=== PATIENT | male | born 1940 | race African-American/Black ===

== ENCOUNTER 2018-10-16 12:27 | Emergency (ER) | payer MEDICARE, OTHER | END 2018-10-16 13:39 | disposition left against medical advice (07) | LOC: ERS 12:27 | DX: Z53.21 Procedure and treatment not carried out due to patient leaving prior to being seen by health care provider (principal) ==

== ENCOUNTER 2019-03-01 14:27 | Inpatient (IN) | payer MEDICARE, OTHER ==
--- NOTE | 2019-03-01 16:51 | RAD ---
EXAM: Single view of the chest HISTORY: Fall today with syncope COMPARISON: 06/26/2015 FINDINGS: Single view of the chest shows a normal sized cardiomediastinal silhouette. There is no shelly dence of consolidation, mass, or pleural effusion. The bones are unremarkable. Shrapnel is seen along the right chest wall. IMPRESSION: No evidence of acute cardiopulmonary disease
[2019-03-01] MEDS ORDERED: Diltiazem 125 MG/25 ML ONE (17:00)
[2019-03-01 17:08] LABS: #Lymphocytes 0.9 thou/uL (1.20-3.40); #Monocytes 0.5 thou/uL (0.11-0.59); #Neutrophils 3.7 thou/uL (1.40-6.50); %Basophils 0.6 % (0.0-1.0); %Eosinophils 0.5 % (0.0-10.0); %Monocytes 9.9 % (0.0-10.0); Hemoglobin 14.6 g/dL (14.0-18.0); Mean Corpuscular HGB CONC 31.5 g/dL (32.0-36.0); Mean Corpuscular Hemoglobin 30.1 pg (27.0-31.0); Mean Corpuscular Volume 95.5 fL (78.0-98.0); Mean Platelet Volume 9.1 fL (7.4-10.4); Platelet Count 263 thou/uL (130-400); RBC Distribution Width 13.3 % (11.5-14.5); Red Blood Cell (RBC) Count 4.85 mill/uL (4.70-6.10); White Blood Cell (WBC) Count 5.1 thou/uL (4.8-10.8)
--- NOTE | 2019-03-01 17:24 | CT ---
EXAM: Brain CT scan Without contrast: HISTORY: Multiple falls, trauma COMPARISON: None FINDINGS: Atrophy and chronic white matter ischemic change. No focal mass or midline shift. No intra or extra-axial hemorrhage. IMPRESSION: No mass or bleed or other significant acute process.
[2019-03-01 17:28] LABS: ALT (SGPT) 19 U/L (8-55); AST (SGOT) 28 U/L (5-34); Albumin 4.6 g/dL (3.4-4.8); Alkaline Phosphatase 60 U/L (40-150); Anion Gap 17 mmol/L (10-20); BUN (Urea Nitrogen) 20 mg/dL (8.4-25.7); Calc. Creatinine Clearance 0 mL/min (70-130); Calcium 10.5 mg/dL (7.8-10.44); Carbon Dioxide 26 mmol/L (23-31); Chloride 100 mmol/L (98-107); Estimated GFR-MDRD 73; Glucose 88 mg/dL (83-110); Potassium 4.5 mmol/L (3.5-5.1); Protein, Total 7.6 g/dL (5.8-8.1); Sodium 138 mmol/L (136-145)
[2019-03-01 17:50] LABS: CKMB 2.6 ng/mL (0-6.6)
[2019-03-01] MEDS ORDERED: Aspirin Chewable 81 MG TAB ONE (19:00)
[2019-03-01 19:48] LABS: Bilirubin Negative (Negative); Blood, Urine Negative (Negative); Clarity CLEAR (Clear); Glucose, Urine (Dipstick) Negative (Negative); Leukocyte Large (Negative); Nitrite Negative (Negative); Protein, Urine (Dipstick) Negative (Neg-Trace); Specific Gravity, Urine 1.016 (1.002-1.036); Urobilinogen 0.2 mg/dL (0.2-1.0); pH, Urine 5.5 (5.0-9.0)
[2019-03-01 19:54] LABS: Bacteria/HPF None Seen HPF (None Seen); Hyaline Casts/LPF 0-3 HYALINE CAST LPF (0-3 Hyaline); Pathc Cast-AUWi Flag 0.54 (0-2.49); RBC/HPF 0-3 HPF (0-3); Squamous Epithelial 0-3 HPF (0-3); WBC/HPF 21-50 HPF (0-3)
[2019-03-01 22:14] VITALS: BMI 18.6
[2019-03-01] MEDS ORDERED: Senokot S 8.6-50 MG TAB PO PRN (22:15)
[2019-03-01] MEDS ORDERED: Acetaminophen 325 MG TAB PO PRN (22:15)
[2019-03-01] MEDS ORDERED: Ondansetron PF 4 MG/2 ML Vial IVP PRN (22:15)
[2019-03-01] MEDS ORDERED: Ondansetron ODT 4 MG TAB PO PRN (22:15)
[2019-03-01] MEDS ORDERED: Acetaminophen 650 MG Suppository PR PRN (22:15)
[2019-03-01] MEDS ORDERED: Enoxaparin Sodium 60 MG/0.6 ML SYRINGE SC SCH (22:15)
[2019-03-01] MEDS ORDERED: Diazepam 5 MG TAB PO PRN (22:28)
[2019-03-01] MEDS ORDERED: Docusate 100 MG CAP PO SCH (22:30)
[2019-03-01] MEDS ORDERED: Thiamine HCl 200 MG/2 ML VIAL IM SCH (22:30)
[2019-03-01] MEDS ORDERED: Diazepam 5 MG TAB PO SCH (22:30)
[2019-03-02 00:10] LABS: CKMB 2.6 ng/mL (0-6.6)
[2019-03-02] MEDS ORDERED: Diazepam 5 MG TAB PO PRN (04:00)
[2019-03-02] MEDS ORDERED: Sodium Chloride 0.9% 500 ML IV SCH (05:30)
[2019-03-02] MEDS ORDERED: Sodium Chloride 0.9% 250 ML IV SCH (06:15)
[2019-03-02] MEDS ORDERED: Amiodarone 150 MG in Dextrose 5% in Water 100 ML IVPB SCH (06:15)
[2019-03-02] MEDS ORDERED: Amiodarone 150 MG, Admixture Fee 1 EACH in Dextrose 5% in Water 100 ML IVPB SCH (06:30)
--- NOTE | 2019-03-02 07:52 | HP ---
PRIMARY CARE PHYSICIAN: Dr. Dumont at [facility] [place]. CHIEF COMPLAINT: Repetitive syncopal episodes. HISTORY OF PRESENT ILLNESS: This is a 78-year-old male with a history of hypertension as well as alcoholism and tobacco abuse. He reports that starting yesterday, he had a sudden syncopal episode where he found himself on the floor. Does not know how long he was down. He was able to get around okay after that and then today, he had about 3 more of them. He had no pain afterward. He just kept waking up on the floor. No loss of bowel or bladder continence. No visible injuries and no pain with ambulation afterward any of the times, but he was worried about these and so he came into the emergency room. In the ER, he was found to be in atrial flutter with variable rate, initially in the 120s to 130s, had a dose of 10 mg of Cardizem in the emergency room and it brought it down initially into the 80s to 100s. However, he did start having some episodes of bradycardia down to the 40s that was quickly resolved. The patient is now running about in the 110's. He is asymptomatic, lying in the stretcher. Denies any other complaints. He has not had any alcohol for the past 24 hours. He states he has never had withdrawal symptoms. PAST MEDICAL HISTORY: 1. Hypertension. 2. Gastroesophageal reflux disease. 3. Herpes zoster. 4. Cholelithiasis. 5. Previous squamous cell carcinoma of the neck, status post resection, chemotherapy, and radiation. PAST SURGICAL HISTORY: 1. Radical neck dissection for squamous cell carcinoma. 2. Inguinal hernia repair. 3. Screening colonoscopy with likely polyp removal. 4. EGD in 2014 for hemorrhagic gastritis. SOCIAL HISTORY: The patient lives by himself, has multiple family members who live in town. He smokes a pack of cigarettes a day and has since he was 16 years old. He does drink about 5 mixed drinks a day. No illicit drug use. FAMILY HISTORY: No known specific family medical problems. ALLERGIES: NO KNOWN DRUG ALLERGIES. CURRENT MEDICATIONS: The patient does not know his current medications. He believes he is on high blood pressure medicine, but does not know what it is or what his other medicines are. REVIEW OF SYSTEMS: CONSTITUTIONAL: No fevers. No chills. EYES: No double vision or blurred vision. ENT: No congestion, drainage, or sore throat. CARDIOVASCULAR: No chest pain. No palpitations or racing heart. PULMONARY: He has occasional chronic cough but nothing worse than normal, nonproductive. No wheezing, chest tightness, or trouble breathing. GASTROINTESTINAL: No abdominal pain. No nausea or vomiting. No diarrhea. He has had some constipation and takes a daily laxative. GENITOURINARY: No dysuria or hematuria. MUSCULOSKELETAL: No muscle aches or joint pains. SKIN: No rashes or other lesions noted. NEUROLOGIC: No numbness, tingling, or focal weakness. Just the syncopal episodes as per HPI. PHYSICAL EXAMINATION: VITAL SIGNS: Blood pressure 138/89, pulse 84, respirations 18, temperature 97.8, and O2 saturation 94% on room air. GENERAL: This is a well-developed, thin, elderly male, in no acute distress. HEENT: Pupils are equal, round, and reactive to light. Oropharynx clear without lesions, erythema, or exudate. NECK: Supple. No lymphadenopathy. No thyroid nodules or enlargement. HEART: Irregularly irregular rhythm. Tachycardic in about the 110's. No murmurs, rubs, or gallops. ABDOMEN: Soft, nontender to palpation. Normoactive bowel sounds. No hepatosplenomegaly or other masses. EXTREMITIES: No clubbing, cyanosis, or edema. SKIN: No rashes or lesions noted. NEUROLOGIC: He is moving all extremities and equal strength and no facial droop. PSYCHIATRIC: Alert and oriented x3. Normal mood and affect. LABORATORY DATA AND DIAGNOSTIC STUDIES: CBC within normal limits. Complete metabolic panel within normal limits. Troponin is indeterminate at 0.038. Brain-natriuretic peptide is elevated at 430. Chest x-ray; I did review the chest x-ray done in the emergency room along with the radiologist's report, it shows no acute infiltrates or cardiomegaly or CHF changes. CT of the brain showing no acute intracranial process. EKG done in the emergency room shows atrial flutter with ventricular rate of 110 beats per minute along with some left ventricular hypertrophy changes. ASSESSMENT: 1. Syncopal episodes, likely secondary to his atrial arrhythmia. We will keep him in a bed or chair for now and only ambulate with assistance. 2. Atrial flutter with rapid ventricular response. The patient had some bradycardic spells with 10 mg of Cardizem in the emergency room. Given that response, I discussed this patient with Dr. Avalos, and he recommended just watching him in the IMCU without further AV dawit blockers and that the patient will likely need an ablation in the morning. He asked that we did make him n.p.o. after midnight and give him one dose of Lovenox. 3. Hypertension. We will try and find out the patient's home blood pressure medications and resume any that do not cause bradycardia. 4. History of gastroesophageal reflux disease. We will put the patient on Pepcid twice a day. 5. Deep venous thrombosis prophylaxis. The patient is going to be on Lovenox. 6. Code status; I did discuss this with the patient, he is a full code. Should he be incapacitated, he states that his son would be his medical decision maker. Son is present in the room. His name is Ace Ordoñez. 7. Alcohol abuse. The patient denies any history of alcohol withdrawal symptoms with stopping alcohol. However, we will put him on ASE protocol just in case. 8. Tobacco abuse. I did recommend the patient consider stopping smoking and we will give him smoking cessation resources in the hospital. Job ID: [id number]
[2019-03-02] MEDS ORDERED: Prevnar 13-Val Conj/PF 0.5 ML SYRINGE IM ONE (09:00)
[2019-03-02] MEDS: Magnesium Oxide 400 MG TAB PO SCH (09:18)
[2019-03-02] MEDS: Folic Acid 1 MG TAB PO SCH (09:18)
[2019-03-02] MEDS: Famotidine 20 MG TAB PO SCH ×2 (09:18→19:48)
[2019-03-02] MEDS: Multivitamin W/ Minerals 1 TAB PO SCH (09:19)
[2019-03-02] MEDS: Famotidine/PF 20 mg/2ml Vial SLOW IVP SCH ×2 (09:19→19:48)
[2019-03-02] MEDS: Thiamine 100 MG TAB PO SCH (09:19)
[2019-03-02] MEDS: Docusate 100 MG CAP PO SCH ×2 (09:19→19:48)
--- NOTE | 2019-03-02 10:29 | PDOC.PN ---
- Subjective Encounter Start Date: 03/02/19 Encounter Start Time: 12:10 Subjective: Patient had some low BP with high heart rate this AM, resolved with -: 5mg cardizem and Amiodarone bolus. Plan for ablation later today. -: No Chest pain. No SOB. No more syncope. - Objective Resuscitation Status - Order Detail: 03/01/19 19:31 Resuscitation Status Routine Resuscitation Status: FULL: Full Resuscitation Discussed with: Patient MAR Reviewed: Yes Vital Signs & Weight: Vital Signs (12 hours) Temp Pulse Ox 03/02/19 03:00 98.4 F 03/01/19 23:42 98 03/01/19 23:00 98.4 F Weight Weight 126 lb 1.671 oz Most Recent Monitor Data Heart Rate from ECG 77 NIBP 110/64 NIBP BP-Mean 79 Respiration from ECG 11 SpO2 97 I&O: 03/01/19 03/02/19 03/03/19 06:59 06:59 06:59 Intake Total 165 Output Total 0 Balance 165 Result Diagrams: 03/01/19 16:53 03/01/19 16:53 EKG Reviewed by me: Yes (sinus serina with PACs on tele monitor) Phys Exam - Physical Examination Constitutional: NAD HEENT: moist MMs Respiratory: no wheezing, no rales, no rhonchi Cardiovascular: RRR, no significant murmur mild bradycardia Gastrointestinal: soft Neurological: non-focal Psychiatric: normal affect, A&O x 3 Dx/Plan (1) Syncopal episodes Code(s): R55 - SYNCOPE AND COLLAPSE Status: Acute (2) Atrial flutter with rapid ventricular response Code(s): I48.92 - UNSPECIFIED ATRIAL FLUTTER Status: Acute (3) HTN (hypertension) Code(s): I10 - ESSENTIAL (PRIMARY) HYPERTENSION Status: Acute (4) GERD (gastroesophageal reflux disease) Code(s): K21.9 - GASTRO-ESOPHAGEAL REFLUX DISEASE WITHOUT ESOPHAGITIS Status: Acute (5) Alcohol abuse Code(s): F10.10 - ALCOHOL ABUSE, UNCOMPLICATED Status: Acute (6) Tobacco abuse Code(s): Z72.0 - TOBACCO USE Status: Acute (7) Hypotension Status: Acute Comment: This AM with rapid heart rate, resolved with rate control - Plan cont current plan of care, PT/OT, DVT proph w/lovenox plan for ablation later today if can fit in schedule * . - Discharge Day Encounter end time: 12:20
--- NOTE | 2019-03-02 12:28 | CON ---
DATE OF CONSULTATION: 03/02/2019 SERVICE: Pulmonary Medicine. HISTORY OF PRESENT ILLNESS: The patient is a 78-year-old male with past medical history significant for head and neck cancer, status post radiation and chemotherapy. He was in his usual state of health until one day prior to admission when he started having multiple syncopal episodes. He did not remember falling. He just would wake up on the floor. This happened at least on 4 or 5 occasions. He did not have any fevers, chills, cough, nausea, vomiting, or diarrhea. He is known to drink fairly heavily. He presented to the emergency department with these complaints and was discovered to be in atrial flutter with RVR. He was given some Cardizem and reverted back into a sinus rhythm. On multiple occasions, he went back into the tachyarrhythmia. However, he had no additional episodes of syncope that went along with these things. He has been on some IV fluids overnight and otherwise is feeling a little bit improved. PAST MEDICAL HISTORY: 1. Chronic obstructive pulmonary disease (not currently diagnosed). 2. Hypertension. 3. Gastroesophageal reflux disease. 4. Oropharyngeal dysphagia. 5. History of squamous cell carcinoma of the neck status post resection, chemotherapy, and radiation. 6. History of herpes zoster. 7. Cholelithiasis. 8. Atrial flutter with RVR, paroxysmal. PAST SURGICAL HISTORY: 1. Radical neck dissection for squamous cell carcinoma. 2. Inguinal hernia repair. 3. EGD in 2014 for hemorrhagic gastritis. SOCIAL HISTORY: Negative for tobacco or illicit drug use. He drinks at least 8 -10 shots of bourbon on a daily basis, which he mixes with Coke. He smokes a pack of cigarettes on a daily basis and has greater than a 60-pack year history of smoking. Denies any street drugs. He has no exposure to chemicals, dust, asbestos, or tuberculosis. Currently, he is living by himself and is functional in his ADLs. FAMILY HISTORY: Noncontributory. ALLERGIES: NO KNOWN DRUG ALLERGIES. MEDICATIONS: List of his inpatient medications were reviewed. No specific updates were made at this time. REVIEW OF SYSTEMS: General, head ears, eyes, nose, throat, cardiovascular, respiratory, GI, , musculoskeletal, neurologic, and skin are negative except as mentioned in the HPI. PHYSICAL EXAMINATION: VITAL SIGNS: Afebrile. Blood pressure 110/64, heart rate 77, respirations 11, saturation 99% on room air. GENERAL: We did orthostatic vital signs and he did have a positive tilt. HEENT: Normocephalic and atraumatic. Sclerae white. Conjunctivae pink. Oral mucosa is moist without lesions. Postradiation changes are noted. HEART: Normal rate. Regular at this time. ABDOMEN: Soft, nontender, and nondistended. Bowel sounds are positive. LUNGS: Reduced air entry with a slightly prolonged expiratory phase. I do not appreciate wheezing, rhonchi, or crackles present. MUSCULOSKELETAL: No cyanosis or clubbing. No pitting in the bilateral lower extremities. NEUROLOGIC: Grossly nonfocal. LABORATORY DATA: WBC 5.1, hemoglobin 14.6, platelets 263,000. Basic metabolic profile and liver function studies are otherwise unremarkable. BNP 430, troponin is downtrending to 0.062. Urinalysis is unremarkable. There is a minimal amount of pyuria present. IMAGING: CT of the brain demonstrates no acute intracranial abnormality. Chest x-ray demonstrates hyperexpanded lung montanez bilaterally without any overt consolidating changes, mass, or effusions. ASSESSMENT: 1. Syncope. 2. Orthostatic hypotension. 3. Atrial flutter with RVR, paroxysmal. 4. Chronic obstructive pulmonary disease, likely not diagnosed, but patient is asymptomatic to this. 5. History of head and neck cancer status post radical neck dissection, radiation therapy, and chemotherapy. DISCUSSION AND PLAN: At this point, the patient is more hemodynamically stable. He can be transitioned out of the ICU to the telemetry unit. Cardiology consultation is currently pending. Agree with echocardiogram. I do believe that he is having these intermittent tachyarrhythmias that are contributing to his syncope. That being said, he also has orthostatic hypotension despite staying in sinus rhythm. I do believe that he has two things that are currently happening. I will give him 1 L of IV bolus. I will check a magnesium tomorrow morning. Pulmonary Critical Care will continue following along while the patient remains inhouse for the time being. 70 minutes have been devoted to this patient in various activities. I personally reviewed all imaging studies and laboratory data noted within this document. For fifty percent of this time, I was interacting with the patient at the bedside or coordinating care with the care team. For the remainder of the time I was immediately available to the patient in the hospital unit. Job ID: [id number] MTDD
--- NOTE | 2019-03-02 13:39 | CON ---
DATE OF CONSULTATION: 03/02/2019 REASON FOR CONSULTATION: New onset atrial flutter. This is a consultation performed by Dr. Kimberley Ly. HISTORY OF PRESENT ILLNESS: Mr. Ordoñez is a 78-year-old gentleman, who presented to [facility] for recurrent syncopal episodes. This is new onset, he has never had an issue like this before. He had an initial syncopal episode where he passed out and woke up on the floor and then had approximately 3 recurrent episodes following that. He denies any pain or bowel or bladder incontinence. He has not had any visible injuries or pain following his passing out episodes. Upon presentation to the emergency room, he was found to be in atrial flutter with very low heart rate approximately 120 to 130 beats per minute range. He was given an IV bolus of 10 mg Cardizem, which did improve his rate control, but had some transient bradycardia, that did quite quickly resolved by previous records. He is currently in sinus rhythm. He has had no further bradycardia, but AV dawit blocking agents have been avoided since his transient bradycardia. He did not have any additional associated symptoms. He is n.p.o. He does endorse current tobacco and alcohol abuse, but has not had any alcohol for the past 24 hours and denies any prior withdrawal symptoms. REVIEW OF SYMPTOMS: 12-point review of symptoms was conducted and is negative except that listed above in HPI. PAST MEDICAL HISTORY: Hypertension, gastroesophageal reflux disease, Herpes zoster, cholelithiasis, squamous cell carcinoma of the neck status post resection chemotherapy and radiation, alcohol abuse, ongoing tobacco habituation, hemorrhagic gastritis status post EGD in 2014. ALLERGIES: NO KNOWN DRUG ALLERGIES. HOME MEDICATIONS: The patient is unsure of home medications possibly being treated for high blood pressure, but does not know names. SOCIAL HISTORY: Resides alone. Multiple family members in the near area. Positive for continued tobacco habituation since he was age 16. Drinks approximately 5 mixed alcoholic beverages daily. Denies illicit drug use. FAMILY HISTORY: Noncontributory. PHYSICAL EXAMINATION: VITAL SIGNS: Temperature 97.0, pulse 77, blood pressure 110/64, respirations 11, and oxygen is 99% on room air. GENERAL: The patient is alert and oriented. Speech is clear. Affect is appropriate. He is in no apparent distress. Resting comfortably in semirecumbent position in bed. He is normocephalic and atraumatic. Sclerae anicteric. EOMs are intact. Oral mucosa is moist and pink with adequate dentition. LUNGS: Clear to auscultation bilaterally. HEART: Rate is regularly regular with crisp S1 and S2. PMI is nondisplaced. ABDOMEN: Soft and nontender without palpable masses. Hepatojugular reflux is negative. EXTREMITIES: Warm and dry to touch without clubbing, cyanosis, or edema. NEUROLOGIC: Grossly intact and nonfocal. Gait was not assessed. DATABASE: Telemetry and EKGs were all personally reviewed and initially reflect atrial flutter, cavotricuspid isthmus dependent conversion to normal sinus rhythm in the morning of 03/02/2019. Currently, sinus rhythm in the 70s. LABORATORY DATA: Hematology and chemistry were reviewed and were unremarkable. Potassium 4.5, creatinine 1.17. ALT and AST within normal limits. BNP 430, TSH 1.7. IMPRESSION: 1. Typical atrial flutter, new onset initially with rapid ventricular response, but currently maintaining sinus rhythm. 2. Recurrent syncope and collapse, likely attributed to newly found atrial arrhythmias and rapid ventricular response. 3. Alcoholism. 4. Current tobacco habituation. 5. CHADS-VASc score of greater than or equal to 3 for advanced age and hypertension. PLAN AND RECOMMENDATIONS: Recommend radiofrequency ablation for his atrial flutter and transient oral anticoagulation use for at least 1 month following ablation. We discussed risk, benefits, and alternatives including rate control and medical management, but he understands there could be possible recurrences and wishes to proceed with an ablation, which can be performed this afternoon if the patient is n.p.o. No RASHIDA is required as the patient converted to sinus rhythm this morning. We discussed the risks of ongoing alcohol consumption with anticoagulation and the risk for unintentional bleeding complications. We would request Eliquis 5 mg p.o. b.i.d. x30 days following ablation and follow up with Clinic in 6 weeks. Thank you for allowing me to participate in the care of this patient. Job ID: [id number]
[2019-03-02] MEDS ORDERED: Heparin 10,000 UNITS/1 ML VIAL ONE (13:56)
[2019-03-02] MEDS ORDERED: Fentanyl 100 MCG/2 ML VIAL ONE (14:16)
[2019-03-02] MEDS ORDERED: Propofol 500 MG/50 ML VIAL ONE (14:16)
[2019-03-02] MEDS ORDERED: Isoproterenol 0.2 MG/1 ML AMP ONE (14:49)
[2019-03-02] MEDS ORDERED: PHENYLEPHRINE-NS 100 MCG/ML 10 ML SYRINGE ONE (15:30)
[2019-03-02] MEDS ORDERED: PROPOFOL 200 MG/20 ML VIAL ONE (15:30)
[2019-03-03 06:04] VITALS: BP 137/81
--- NOTE | 2019-03-03 07:57 | OP ---
DATE OF PROCEDURE: 03/02/2019 PROCEDURE: Radiofrequency ablation for atrial flutter. PREOPERATIVE DIAGNOSIS: Atrial flutter. DESCRIPTION OF PROCEDURE: The patient came to the EP lab in the postobstructive state. Informed consent was obtained. A time-out was called. The patient was sedated by member of the anesthesia staff. Once the patient was adequately sedated, the right and left femoral regions were prepped and draped in the usual sterile fashion. Using ultrasound guidance and a modified Seldinger technique, access was obtained x3 in the right femoral vein. Two 6-Vincentian sheaths and one 8-Vincentian sheath were placed. Two decapolar catheters were advanced, one was placed into the coronary sinus for left atrial pacing and recording and the other one was placed along the ciro terminalis. The ablation catheter was advanced and His recording was obtained and HV interval was normal at approximately 45 milliseconds. Radiofrequency was delivered with a target output of approximately 35 mike along the tricuspid annulus using a STSF Carto catheter after 3D electroanatomical show was created. This was done while pacing within the coronary sinus. Activation sequence changed and approximately 150-millisecond delay was obtained, suggesting bidirectional block. In distant to this measurement, more lateral than this was shorter, again suggesting block. After this, isoproterenol was given as a bolus and remeasurement was taken, confirming block. Therefore, catheters were removed, sheaths were removed, and hemostasis was obtained by placement of Vascade closure devices. The patient tolerated the procedure well, and was discharged from the EP lab in stable condition. Total ablation time was 2 minutes. PROCEDURES PERFORMED: 3D electroanatomical mapping, EP study, radiofrequency ablation for SVT, CS/LA recording, and drug infusion. CONCLUSION: Successful radiofrequency ablation for atrial flutter. RECOMMENDATIONS: The patient will be at bedrest and we will follow up with Electrophysiology in 6 to 8 weeks. Job ID: [id number]
[2019-03-03 08:06] VITALS: TEMP 97.5
--- NOTE | 2019-03-03 08:13 | PDOC.CTH ---
Cardiology Progress Note - Subjective EP PROGRESS NOTE: 03/03/19 Seen as follow up post CTI ablation for atrial flutter. No cardiac concerns or complaints over night or this AM. Feels well, eager to go home - Objective Vital Signs Temp Resp 03/03/19 08:00 97.5 F L 03/03/19 04:09 98.8 F 03/03/19 04:00 18 03/03/19 02:00 16 03/03/19 00:07 98.4 F 03/03/19 00:00 18 03/02/19 23:00 16 Admit Weight 126 lb Weight 132 lb 6 oz 03/02/19 03/03/19 03/04/19 06:59 06:59 06:59 Intake Total 165 720 Output Total 0 300 Balance 165 420 - Physical Examination General/Neuro: alert & oriented x3, NAD Neck: carotid US brisk, no JVD present Lungs: CTA, unlabored respirations Heart: PMI normal, RRR Abdomen: NT/ND, soft Other PE findings: groin site stable - Telemetry Telemetry Rhythm: SR, PACs - Labs Result Diagrams: 03/01/19 16:53 03/01/19 16:53 Troponin/CKMB CK-MB (CK-2) 2.6 ng/mL (0-6.6) 03/01/19 23:00 Troponin I 0.062 ng/mL (< 0.028) H 03/01/19 23:00 - Assessment/Plan 1. Atrial flutter -CTI dependent s/p CTI ablation on 03/05 - SR 60-90 over HS with some PACs - adding toprol XL 25mg PO QD -Started eliquis 5mg PO BID x 30 days post ablation. 3o days supply card provided to patient this AM. 2. HTN OK For DC by EP. FUP in 6 weeks with Mike [facility] office
[2019-03-03] MEDS: Folic Acid 1 MG TAB PO SCH (08:58)
[2019-03-03] MEDS: Magnesium Oxide 400 MG TAB PO SCH (08:58)
[2019-03-03] MEDS: Famotidine 20 MG TAB PO SCH (08:58)
[2019-03-03] MEDS: Docusate 100 MG CAP PO SCH (08:58)
[2019-03-03] MEDS: Multivitamin W/ Minerals 1 TAB PO SCH (08:58)
[2019-03-03] MEDS: Famotidine/PF 20 mg/2ml Vial SLOW IVP SCH (08:59)
[2019-03-03] MEDS: Thiamine 100 MG TAB PO SCH (08:59)
[2019-03-03] MEDS ORDERED: Apixaban 5 MG TAB PO SCH (09:00)
--- NOTE | 2019-03-03 10:13 | PDOC.PN ---
- Subjective Encounter Start Date: 03/03/19 Encounter Start Time: 10:50 Subjective: Patient feeling back to normal. Ambulated without difficulty with PT. -: No CP/SOB/Syncope. - Objective Resuscitation Status - Order Detail: 03/01/19 19:31 Resuscitation Status Routine Resuscitation Status: FULL: Full Resuscitation Discussed with: Patient MAR Reviewed: Yes Vital Signs & Weight: Vital Signs (12 hours) Temp Resp 03/03/19 08:00 97.5 F L 03/03/19 04:09 98.8 F 03/03/19 04:00 18 03/03/19 02:00 16 03/03/19 00:07 98.4 F 03/03/19 00:00 18 03/02/19 23:00 16 Weight Admit Weight 126 lb Weight 132 lb 6 oz Most Recent Monitor Data Heart Rate from ECG 66 NIBP 119/65 NIBP BP-Mean 83 Respiration from ECG 10 SpO2 96 I&O: 03/02/19 03/03/19 03/04/19 06:59 06:59 06:59 Intake Total 165 720 Output Total 0 300 Balance 165 420 Result Diagrams: 03/01/19 16:53 03/01/19 16:53 EKG Reviewed by me: Yes (tele with sinus rhythm) Phys Exam - Physical Examination Constitutional: NAD HEENT: moist MMs Respiratory: no wheezing, no rales, no rhonchi Cardiovascular: RRR, no significant murmur Gastrointestinal: soft, non-tender, positive bowel sounds Neurological: non-focal, moves all 4 limbs Psychiatric: normal affect, A&O x 3 Dx/Plan (1) Syncopal episodes Code(s): R55 - SYNCOPE AND COLLAPSE Status: Acute (2) Atrial flutter with rapid ventricular response Code(s): I48.92 - UNSPECIFIED ATRIAL FLUTTER Status: Acute (3) HTN (hypertension) Code(s): I10 - ESSENTIAL (PRIMARY) HYPERTENSION Status: Acute (4) GERD (gastroesophageal reflux disease) Code(s): K21.9 - GASTRO-ESOPHAGEAL REFLUX DISEASE WITHOUT ESOPHAGITIS Status: Acute (5) Alcohol abuse Code(s): F10.10 - ALCOHOL ABUSE, UNCOMPLICATED Status: Acute (6) Tobacco abuse Code(s): Z72.0 - TOBACCO USE Status: Acute (7) Hypotension Status: Acute Comment: This AM with rapid heart rate, resolved with rate control - Plan plan for d/c home today on 30 days of elliquis * . - Discharge Day Encounter end time: 11:15
--- NOTE | 2019-03-03 16:25 | PRG ---
DATE OF SERVICE: 03/03/2019 INTERVAL HISTORY: The patient is doing outstanding from a respiratory standpoint. Denies any current chest pain, fevers, or chills. Otherwise, there has been no interval change to the patient's condition. He is very antsy to get out of the hospital. He is very much likely to go home today if possible. EP has cleared him apparently for discharge. As such, I think it would be perfectly reasonable for him to get out of here. PHYSICAL EXAMINATION: VITAL SIGNS: Afebrile, pulse 66, blood pressure 119/65, respirations 10, saturation 96% on room air. GENERAL: The patient is awake and alert, in no apparent distress. LUNGS: Decent air entry. There is no prolonged expiratory phase. No wheezing or crackles are appreciated. HEART: Normal rate and regular. ABDOMEN: Soft, nontender, and nondistended. Bowel sounds are positive. MUSCULOSKELETAL: No cyanosis or clubbing. There is no pitting in the bilateral lower extremities. NEUROLOGIC: Grossly nonfocal. ASSESSMENT: 1. Syncope. 2. Orthostatic hypotension. 3. Atrial flutter with rapid ventricular response, paroxysmal. 4. Chronic obstructive pulmonary disease, now diagnosed as patient is asymptomatic. 5. History of head and neck cancer, status post radical neck dissection, radiation therapy, and chemotherapy. 6. Alcohol abuse. DISCUSSION AND PLAN: At this point, the patient is stable for transition out of the hospital. I will continue to follow if he remains in the [facility], but if he leaves this location, I will sign off. He has no further requirements for inpatient Pulmonary or Critical Care opinion. I am not absolutely convinced that the patient had pure atrial flutter causing his syncope. I do think that orthostatic hypotension has played a role here. Whether or not this is associated with his prior radiation, neurogenic, or associated simply with volume depletion/dehydration, it is not clear. That being said, it has modestly improved during this hospital stay. Job ID: [id number]
--- NOTE | 2019-03-03 16:56 | DIS ---
DATE OF ADMISSION: 03/01/2019 DATE OF DISCHARGE: 03/03/2019 PRIMARY CARE PHYSICIAN: Dr. Dumont at [facility]. REASON FOR ADMISSION: Syncope and atrial flutter with rapid ventricular response. DIAGNOSES AT DISCHARGE: 1. Atrial flutter with rapid ventricular response, resolved status post radiofrequency ablation. 2. Hypertension. 3. Gastroesophageal reflux disease. 4. Alcohol abuse. 5. Tobacco abuse. PROCEDURES: 1. CT of the brain showing no evidence of acute intracranial process. 2. Radiofrequency ablation for atrial flutter. CONSULTATIONS: 1. Electrophysiology, Dr. Ly. 2. Pulmonology, Dr. José. SUMMARY OF HOSPITAL COURSE: This is a 78-year-old male with a history of hypertension, alcoholism, and tobacco abuse. He reports starting the day before admission sudden syncopal episodes, finding himself on the floor, happened three more times, and went to the emergency room and was found to be in atrial flutter with rapid ventricular rate. He did have a little bit of bradycardia after a dose of Cardizem in the ER. He was admitted. Electrophysiology was consulted. The patient did have a return of his fast ventricular rate while in the hospital along with some hypotension, so he was given another dose of Cardizem and a dose of amiodarone with conversion to sinus bradycardia with frequent PACs. Dr. Ly did take the patient back for radiofrequency ablation, which was successful. The patient was put on Eliquis twice a day for the next month and has been cleared to be discharged home. He has been ambulating well with physical therapy. His blood pressure has been running low normal on just a small dose of metoprolol, which was added in the hospital. DISCHARGE MANAGEMENT: Discharged home. FOLLOWUP: Follow up with Dr. Durand's office in 6 weeks. ACTIVITY: As tolerated. DIET: Healthy-heart, low-sodium diet. MEDICATIONS: 1. Eliquis 5 mg twice a day for 30 days, 60 tablets dispensed. 2. Metoprolol succinate 25 mg daily, 30 tablets dispensed. 3. Continue Protonix 40 mg twice a day. 4. Discontinue losartan and hydrochlorothiazide. Job ID: [id number] [facility]
== END 2019-03-03 11:45 | disposition home or self-care (01) | DRG 274 ==
LOC: ERS 14:27 → OBSVTOIN 19:39 → CCU 19:39 → IMCU/EMU 03-02 07:30
PROVIDERS: ADMIT Emergency Medicine; ATTEND Emergency Medicine
PROC: 02583ZZ Destruction of Conduction Mechanism, Percutaneous Approach (ICD-10-PCS; principal; 2019-03-02)
PROC: 02K83ZZ Map Conduction Mechanism, Percutaneous Approach (ICD-10-PCS; 2019-03-02)
PROC: 4A023FZ Measurement of Cardiac Rhythm, Percutaneous Approach (ICD-10-PCS; 2019-03-02)
PROC: 4A0234Z Measurement of Cardiac Electrical Activity, Percutaneous Approach (ICD-10-PCS; 2019-03-02)
DX: I48.92 Unspecified atrial flutter (principal); I10 Essential (primary) hypertension; K21.9 Gastro-esophageal reflux disease without esophagitis; F17.210 Nicotine dependence, cigarettes, uncomplicated; I95.1 Orthostatic hypotension; F10.20 Alcohol dependence, uncomplicated; Z85.89 Personal history of malignant neoplasm of other organs and systems; Z92.3 Personal history of irradiation; Z92.21 Personal history of antineoplastic chemotherapy; Z79.899 Other long term (current) drug therapy
CPT/HCPCS: 36415; 70450; 71045; 76942; 80053; 81003; 81015; 82553; 83735; 83880; 84443; 84484; 85025; 90471; 90670; 93005; 93613; 93621; 93653; 96361; 96374; C1730; C1732; C1769; G0009; J0282; J1644; J1650; J2704; J3010; J3411; J3475; J3490; J7070

== ENCOUNTER 2021-02-07 18:54 | Observation (INO) | payer MEDICARE ==
[2021-02-07] MEDS ORDERED: Acetaminophen 500 MG TAB ONE (19:52)
[2021-02-07 23:33] LABS: #Eosinphils 0.1 thou/uL (0.0-0.7); #Lymphocytes 1.4 thou/uL (1.20-3.40); #Monocytes 0.8 thou/uL (0.11-0.59); #Neutrophils 3.5 thou/uL (1.40-6.50); %Basophils 0.6 % (0.0-1.0); %Eosinophils 1.8 % (0.0-10.0); %Monocytes 14.1 % (0.0-10.0); %Neutrophils 59.4 % (42.0-75.0); Hemoglobin 8.2 g/dL (14.0-18.0); Mean Corpuscular HGB CONC 32.8 g/dL (32.0-36.0); Mean Corpuscular Hemoglobin 29.8 pg (27.0-31.0); Mean Corpuscular Volume 90.7 fL (78.0-98.0); Mean Platelet Volume 7.2 fL (7.4-10.4); Platelet Count 367 thou/uL (130-400); RBC Distribution Width 12.8 % (11.5-14.5); Red Blood Cell (RBC) Count 2.75 mill/uL (4.70-6.10)
[2021-02-07 23:52] LABS: ALT (SGPT) 7 U/L (8-55); AST (SGOT) 10 U/L (5-34); Albumin 2.8 g/dL (3.4-4.8); Alkaline Phosphatase 71 U/L (40-110); Anion Gap 13 mmol/L (10-20); BUN (Urea Nitrogen) 21 mg/dL (8.4-25.7); Bilirubin, Total 0.4 mg/dL (0.2-1.2); Calc. Creatinine Clearance 0 mL/min (70-130); Calcium 8.2 mg/dL (7.8-10.44); Carbon Dioxide 24 mmol/L (23-31); Chloride 102 mmol/L (98-107); Globulin 3.2 g/dL (2.4-3.5); Glucose 80 mg/dL (83-110); Sodium 135 mmol/L (136-145)
[2021-02-08] MEDS ORDERED: Acetaminophen 325 MG TAB PO PRN (04:48)
[2021-02-08 09:22] LABS: #Eosinphils 0.1 thou/uL (0.0-0.7); #Lymphocytes 1.1 thou/uL (1.20-3.40); #Monocytes 0.7 thou/uL (0.11-0.59); %Basophils 0.3 % (0.0-1.0); %Eosinophils 1.6 % (0.0-10.0); %Neutrophils 68.1 % (42.0-75.0); Hemoglobin 10.5 g/dL (14.0-18.0); Mean Corpuscular HGB CONC 30.7 g/dL (32.0-36.0); Mean Corpuscular Hemoglobin 28.3 pg (27.0-31.0); Mean Platelet Volume 7.3 fL (7.4-10.4); Platelet Count 465 thou/uL (130-400); White Blood Cell (WBC) Count 5.9 thou/uL (4.8-10.8)
[2021-02-08 09:41] LABS: Iron 26 ug/dL (65-175); Iron Binding Capacity, Total 156 mcg/dL (261-462)
[2021-02-08 10:03] VITALS: BMI 21.4
[2021-02-08 12:06] LABS: Bacteria/HPF 3+ HPF (None Seen); Bilirubin Negative (Negative); Blood, Urine Negative (Negative); Clarity Clear (Clear); Glucose, Urine (Dipstick) Normal (Negative); Ketone, Urine Negative (Negative); Leukocyte 500 Leu/uL (Negative); Nitrite Negative (Negative); Protein, Urine (Dipstick) Negative (Neg-Trace); RBC/HPF 0-3 HPF (0-3); Specific Gravity, Urine 1.017 (1.002-1.036); Squamous Epithelial 0-3 HPF (0-3); Urobilinogen Normal mg/dL (Less than 2); WBC/HPF Greater than 50 HPF (0-3)
[2021-02-08 12:10] LABS: Urine Culture Reflex Yes Yes
[2021-02-08 22:38] LABS: SARS-CoV-2 PCR by NAA Not Detected (NotDetected)
[2021-02-09 04:42] VITALS: BP 130/66; TEMP 97.2
[2021-02-09 07:22] LABS: #Basophils 0.1 thou/uL (0.0-0.2); #Eosinphils 0.1 thou/uL (0.0-0.7); #Lymphocytes 1.5 thou/uL (1.20-3.40); #Monocytes 0.8 thou/uL (0.11-0.59); #Neutrophils 4.2 thou/uL (1.40-6.50); %Basophils 0.9 % (0.0-1.0); %Lymphocytes 23.1 % (21.0-51.0); %Monocytes 12.5 % (0.0-10.0); %Neutrophils 62.5 % (42.0-75.0); Mean Corpuscular Hemoglobin 29.1 pg (27.0-31.0); Mean Corpuscular Volume 90.9 fL (78.0-98.0); Mean Platelet Volume 7.8 fL (7.4-10.4); Platelet Count 423 thou/uL (130-400); Red Blood Cell (RBC) Count 3.45 mill/uL (4.70-6.10); White Blood Cell (WBC) Count 6.7 thou/uL (4.8-10.8)
[2021-02-09 07:51] LABS: Anion Gap 14 mmol/L (10-20); BUN (Urea Nitrogen) 22 mg/dL (8.4-25.7); Calc. Creatinine Clearance 45 mL/min (70-130); Calcium 8.9 mg/dL (7.8-10.44); Carbon Dioxide 24 mmol/L (23-31); Chloride 102 mmol/L (98-107); Glucose 69 mg/dL (83-110); Potassium 4.9 mmol/L (3.5-5.1); Sodium 135 mmol/L (136-145)
[2021-02-09] MEDS ORDERED: FLU VACC QS2020-21(65YR UP)/PF 240 MCG/0.7 ML SYRINGE IM ONE (09:00)
== END 2021-02-09 12:06 | disposition home or self-care (01) ==
LOC: ERS 18:54 → ERHOLD 02-08 00:48 → T4-B 02-08 13:56
PROVIDERS: ADMIT Internal Medicine; ATTEND Internal Medicine
DX: S32.021A Stable burst fracture of second lumbar vertebra, initial encounter for closed fracture (principal); S32.10XA Unspecified fracture of sacrum, initial encounter for closed fracture; R91.8 Other nonspecific abnormal finding of lung field; I10 Essential (primary) hypertension; K21.9 Gastro-esophageal reflux disease without esophagitis; F17.210 Nicotine dependence, cigarettes, uncomplicated; D53.9 Nutritional anemia, unspecified; R41.82 Altered mental status, unspecified; F10.11 Alcohol abuse, in remission; Z85.89 Personal history of malignant neoplasm of other organs and systems; Z79.899 Other long term (current) drug therapy; Z20.822 Contact with and (suspected) exposure to COVID-19; W19.XXXA Unspecified fall, initial encounter; D64.89 Other specified anemias
CPT/HCPCS: 72128; 72131; 80048; 80053; 81001; 82607; 83540; 83550; 84207; 85025 ×3; 87086; 94760; 97139 ×3; 99285; G0378 ×3; U0003; U0005; 36415; 87635

== ENCOUNTER 2021-02-21 20:11 | Emergency (ER) | payer MEDICARE ==
[2021-02-21 21:07] LABS: #Basophils 0.1 thou/uL (0.0-0.2); #Eosinphils 0.1 thou/uL (0.0-0.7); #Lymphocytes 1.7 thou/uL (1.20-3.40); #Neutrophils 4.9 thou/uL (1.40-6.50); %Basophils 1.3 % (0.0-1.0); %Eosinophils 1.4 % (0.0-10.0); %Lymphocytes 21.8 % (21.0-51.0); %Monocytes 12.7 % (0.0-10.0); %Neutrophils 62.8 % (42.0-75.0); Hemoglobin 9.3 g/dL (14.0-18.0); Mean Corpuscular HGB CONC 32.7 g/dL (32.0-36.0); Mean Corpuscular Hemoglobin 29.7 pg (27.0-31.0); Mean Platelet Volume 7.2 fL (7.4-10.4); Platelet Count 463 thou/uL (130-400); RBC Distribution Width 12.8 % (11.5-14.5); Red Blood Cell (RBC) Count 3.12 mill/uL (4.70-6.10); White Blood Cell (WBC) Count 7.8 thou/uL (4.8-10.8)
[2021-02-21 21:32] LABS: ALT (SGPT) Less than 7 U/L (8-55); AST (SGOT) 11 U/L (5-34); Albumin 3.7 g/dL (3.4-4.8); Alkaline Phosphatase 92 U/L (40-110); Anion Gap 15 mmol/L (10-20); BUN (Urea Nitrogen) 21 mg/dL (8.4-25.7); Bilirubin, Total 0.4 mg/dL (0.2-1.2); Calc. Creatinine Clearance 0 mL/min (70-130); Calcium 9.3 mg/dL (7.8-10.44); Carbon Dioxide 25 mmol/L (23-31); Chloride 100 mmol/L (98-107); Globulin 3.8 g/dL (2.4-3.5); Glucose 79 mg/dL (83-110); Lipase 14 U/L (8-78); Potassium 4.4 mmol/L (3.5-5.1); Protein, Total 7.5 g/dL (5.8-8.1); Sodium 136 mmol/L (136-145)
[2021-02-21 22:56] LABS: CKMB 0.8 ng/mL (0-6.6)
== END 2021-02-21 23:12 | disposition left against medical advice (07) ==
LOC: ERS 20:11
DX: R11.0 Nausea (principal); I10 Essential (primary) hypertension; F17.210 Nicotine dependence, cigarettes, uncomplicated
CPT/HCPCS: 36415; 80053; 82553; 83690; 84484; 85025; 93005

== ENCOUNTER 2021-04-05 08:14 | Emergency (ER) | payer MEDICARE ==
[2021-04-05 09:28] LABS: Hemoglobin 9.6 g/dL (14.0-18.0); Mean Corpuscular HGB CONC 31.5 g/dL (32.0-36.0); RBC Distribution Width 13.7 % (11.5-14.5); Red Blood Cell (RBC) Count 3.31 mill/uL (4.70-6.10); White Blood Cell (WBC) Count 6.4 thou/uL (4.8-10.8)
[2021-04-05 10:02] LABS: #Basophils 0.1 thou/uL (0.0-0.2); #Eosinphils 0.1 thou/uL (0.0-0.7); #Lymphocytes 1.5 thou/uL (1.20-3.40); #Monocytes 0.9 thou/uL (0.11-0.59); #Neutrophils 3.8 thou/uL (1.40-6.50); %Basophils 0.8 % (0.0-1.0); %Lymphocytes 23.1 % (21.0-51.0); %Monocytes 14.2 % (0.0-10.0); %Neutrophils 59.8 % (42.0-75.0); MDiff Complete? YES; Platelet Clumps MARKED; Platelet Morphology Comment PLT clumps seen-ADEQ; RBC Morphology Normal
== END 2021-04-05 10:05 | disposition left against medical advice (07) ==
LOC: ERS 08:14
DX: R53.1 Weakness (principal); I10 Essential (primary) hypertension; F17.210 Nicotine dependence, cigarettes, uncomplicated; Z85.89 Personal history of malignant neoplasm of other organs and systems
CPT/HCPCS: 71045; 83880; 84484; 85025; 93005

== ENCOUNTER 2021-12-01 10:48 | Inpatient (IN) | payer MEDICARE ==
[2021-12-01] MEDS ORDERED: Sterile Water 10 ML ONE (11:07)
[2021-12-01] MEDS ORDERED: Dextrose 50% Abboject 50 ML SYRINGE ONE (11:07)
[2021-12-01 12:03] LABS: #Basophils 0.1 thou/uL (0.0-0.2); #Lymphocytes 0.7 thou/uL (1.20-3.40); #Monocytes 0.4 thou/uL (0.11-0.59); #Neutrophils 2.8 thou/uL (1.40-6.50); %Basophils 1.5 % (0.0-1.0); %Eosinophils 1.2 % (0.0-10.0); %Monocytes 8.7 % (0.0-10.0); %Neutrophils 70.7 % (42.0-75.0); Hemoglobin 11.7 g/dL (14.0-18.0); Mean Corpuscular HGB CONC 30.9 g/dL (32.0-36.0); Mean Corpuscular Hemoglobin 28.5 pg (27.0-31.0); Mean Corpuscular Volume 92.4 fL (78.0-98.0); Mean Platelet Volume 8.5 fL (7.4-10.4); Platelet Count 285 thou/uL (130-400); RBC Distribution Width 13.7 % (11.5-14.5)
[2021-12-01 12:20] LABS: ALT (SGPT) Less than 7 U/L (8-55); AST (SGOT) 8 U/L (5-34); Alkaline Phosphatase 92 U/L (40-110); Anion Gap 13 mmol/L (10-20); BUN (Urea Nitrogen) 15 mg/dL (8.4-25.7); Bilirubin, Total 0.7 mg/dL (0.2-1.2); Calc. Creatinine Clearance 0 mL/min (70-130); Carbon Dioxide 25 mmol/L (23-31); Chloride 99 mmol/L (98-107); Globulin 3.7 g/dL (2.4-3.5); Glucose 185 mg/dL (83-110); Potassium 3.5 mmol/L (3.5-5.1); Protein, Total 6.7 g/dL (5.8-8.1); Sodium 133 mmol/L (136-145)
[2021-12-01 12:44] LABS: CKMB 1.5 ng/mL (0-6.6)
[2021-12-01] MEDS ORDERED: Furosemide 40 MG/4 ML VIAL ONE (13:44)
[2021-12-01 14:47] LABS: SARS-CoV-2 NAA Rapid Test Not Detected (NotDetected)
[2021-12-01] MEDS ORDERED: Thiamine 100 MG TAB ONE (16:25)
[2021-12-01] MEDS ORDERED: Thiamine HCl 200 MG/2 ML VIAL SLOW IVP SCH (17:30)
[2021-12-01] MEDS ORDERED: Folic Acid 1 MG, Multivitamins, Adult 10 ML in Dextrose 5 %-0.45 % NaCl 1,000 ML IV SCH (17:30)
[2021-12-01 17:38] LABS: Troponin I 0.044 ng/mL (< 0.028)
[2021-12-01] MEDS ORDERED: Dextrose 5% in Water 1,000 ML IV PRN (20:05)
[2021-12-01] MEDS ORDERED: Ondansetron ODT 4 MG TAB PO PRN ×2 (20:05→20:13)
[2021-12-01] MEDS ORDERED: Acetaminophen 650 MG Suppository PR PRN (20:05)
[2021-12-01] MEDS ORDERED: Acetaminophen 325 MG TAB PO PRN (20:05)
[2021-12-01] MEDS ORDERED: Ondansetron PF 4 MG/2 ML Vial IVP PRN (20:05)
[2021-12-01] MEDS ORDERED: Lorazepam 1 MG TAB PO PRN (20:13)
[2021-12-01] MEDS ORDERED: Lorazepam 2 MG/ML VIAL IM PRN (20:13)
[2021-12-01] MEDS ORDERED: Electrolyte Replacement Protocol 1 EACH FS SCH (20:15)
[2021-12-01 20:56] LABS: Magnesium 1.8 mg/dL (1.6-2.6)
[2021-12-01] MEDS: Lorazepam 1 MG TAB PO SCH (21:32)
[2021-12-01] MEDS: Thiamine HCl 200 MG/2 ML VIAL SLOW IVP SCH (21:34)
[2021-12-01] MEDS: Dextrose 50% Abboject 50 ML SYRINGE SLOW IVP PRN (23:52)
[2021-12-02] MEDS ORDERED: Dextrose 10% in Water 1,000 ML IV SCH ×2 (00:30→08:57)
[2021-12-02] MEDS: Lorazepam 1 MG TAB PO SCH ×4 (04:18→18:45)
[2021-12-02] MEDS: Dextrose 50% Abboject 50 ML SYRINGE SLOW IVP PRN ×6 (04:57→17:43)
[2021-12-02] MEDS: Furosemide 40 MG/4 ML VIAL SLOW IVP SCH ×2 (06:42→15:18)
[2021-12-02] MEDS: Enoxaparin Sodium 40 MG/0.4 ML SYRINGE SC SCH (08:32)
[2021-12-02] MEDS: Multivit, Therapeutic 1 TAB PO SCH (08:34)
[2021-12-02] MEDS: Folic Acid 1 MG TAB PO SCH (08:34)
[2021-12-02] MEDS ORDERED: pyridOXINE 50 MG (B6) TAB PO SCH (10:00)
[2021-12-02] MEDS ORDERED: Cyanocobalamin (Vitamin B-12) 1,000 MCG TAB PO SCH (10:00)
[2021-12-02] MEDS ORDERED: Ascorbic Acid 500 mg Chewable Tablet PO SCH (10:00)
[2021-12-02] MEDS ORDERED: Piperacillin/Tazobactam 3.375 GM in Sodium Chloride 0.9% 100 ML IVPB SCH ×3 (13:45→18:00)
[2021-12-02] MEDS ORDERED: Meropenem 1 GM in Sodium Chloride 0.9% 100 ML IVPB SCH ×2 (15:15→16:00)
[2021-12-02] MEDS ORDERED: Multivitamins, Adult 10 ML, Folic Acid 1 MG, Thiamine HCl 100 MG in Dextrose 5 %-0.45 %... IV SCH (17:00)
[2021-12-02] MEDS ORDERED: Folic Acid 1 MG, Multivitamins, Adult 10 ML in Dextrose 5 %-0.45 % NaCl 1,000 ML IV SCH (17:30)
[2021-12-02] MEDS ORDERED: Thiamine HCl 200 MG/2 ML VIAL SLOW IVP SCH (17:30)
[2021-12-02] MEDS ORDERED: Lorazepam 1 MG TAB PO PRN (20:13)
[2021-12-02] MEDS: Cholecalciferol 1,000 UNITS (25 MCG) TAB PO SCH (22:17)
[2021-12-02] MEDS: Polyethylene Glycol 3350 17 GM Packet PO SCH (22:17)
[2021-12-02] MEDS: Thiamine HCl 200 MG/2 ML VIAL SLOW IVP SCH (22:39)
[2021-12-03] MEDS ORDERED: MEROPENEM 1 GM/50 ML 1 GM in Premix Bag 1 BAG IVPB SCH
[2021-12-03] MEDS ORDERED: Meropenem 1 GM in Sodium Chloride 0.9% 100 ML IVPB SCH
[2021-12-03] MEDS: Lorazepam 1 MG TAB PO SCH ×4 (00:10→17:25)
[2021-12-03] MEDS ORDERED: OLANZapine 10 MG VIAL IM SCH ×2 (02:00→23:30)
[2021-12-03] MEDS ORDERED: Dextrose 5 %-0.45 % NaCl 1,000 ML IV SCH ×2 (02:00→17:00)
[2021-12-03 02:55] LABS: #Basophils 0.1 thou/uL (0.0-0.2); #Eosinphils 0.1 thou/uL (0.0-0.7); #Lymphocytes 1.3 thou/uL (1.20-3.40); #Monocytes 0.9 thou/uL (0.11-0.59); #Neutrophils 6.4 thou/uL (1.40-6.50); %Basophils 0.8 % (0.0-1.0); %Eosinophils 0.9 % (0.0-10.0); %Lymphocytes 14.5 % (21.0-51.0); %Monocytes 10.7 % (0.0-10.0); %Neutrophils 73.2 % (42.0-75.0); Hemoglobin 12.6 g/dL (14.0-18.0); Mean Corpuscular HGB CONC 30.5 g/dL (32.0-36.0); Mean Corpuscular Hemoglobin 28.4 pg (27.0-31.0); Mean Corpuscular Volume 93.1 fL (78.0-98.0); Mean Platelet Volume 8.4 fL (7.4-10.4); Platelet Count 315 thou/uL (130-400); RBC Distribution Width 13.9 % (11.5-14.5); Red Blood Cell (RBC) Count 4.44 mill/uL (4.70-6.10); White Blood Cell (WBC) Count 8.7 thou/uL (4.8-10.8)
[2021-12-03 03:04] LABS: INR-International Normal Ratio 1.1; PTT 29.2 sec (22.9-36.1); Prothrombin Time 14.1 sec (12.0-14.7)
[2021-12-03 03:23] LABS: Troponin I 0.059 ng/mL (< 0.028)
[2021-12-03 03:32] LABS: Hemoglobin A1c 4.2 % (4.0-6.0)
[2021-12-03 03:36] LABS: Anion Gap 19 mmol/L (10-20); BUN (Urea Nitrogen) 15 mg/dL (8.4-25.7); Calc. Creatinine Clearance 55 mL/min (70-130); Calcium 9.1 mg/dL (7.8-10.44); Carbon Dioxide 24 mmol/L (23-31); Chloride 93 mmol/L (98-107); Glucose 72 mg/dL (83-110); Magnesium 1.6 mg/dL (1.6-2.6); Potassium 3.9 mmol/L (3.5-5.1); Sodium 132 mmol/L (136-145)
[2021-12-03 05:19] LABS: Lactic Acid 1.1 mmol/L (0.5-2.2)
[2021-12-03] MEDS: Furosemide 40 MG/4 ML VIAL SLOW IVP SCH ×2 (06:46→13:28)
[2021-12-03] MEDS ORDERED: Folic Acid 1 MG, Multivitamins, Adult 10 ML in Dextrose 5 %-0.45 % NaCl 1,000 ML IV SCH ×2 (09:00→09:37)
[2021-12-03] MEDS ORDERED: Thiamine HCl 200 MG/2 ML VIAL SLOW IVP SCH (09:00)
[2021-12-03] MEDS: Enoxaparin Sodium 40 MG/0.4 ML SYRINGE SC SCH (09:03)
[2021-12-03] MEDS: Ascorbic Acid 500 mg Chewable Tablet PO SCH (09:04)
[2021-12-03] MEDS: Folic Acid 1 MG TAB PO SCH (09:05)
[2021-12-03] MEDS: Multivit, Therapeutic 1 TAB PO SCH (09:05)
[2021-12-03] MEDS: Cyanocobalamin (Vitamin B-12) 1,000 MCG TAB PO SCH (09:05)
[2021-12-03] MEDS: pyridOXINE 50 MG (B6) TAB PO SCH (09:06)
[2021-12-03] MEDS ORDERED: Aspirin Chewable 81 MG TAB PO SCH (09:45)
[2021-12-03] MEDS ORDERED: Magnesium Sulfate 4 GM in Sodium Chloride 0.9% 250 ML 250 ML IVPB SCH (10:00)
[2021-12-03] MEDS: K-Phos Neutral 250 MG TAB PO SCH ×2 (11:15→17:25)
[2021-12-03] MEDS ORDERED: Multivitamins, Adult 10 ML, Folic Acid 1 MG, Thiamine HCl 100 MG in Dextrose 5 %-0.45 %... IV SCH (12:00)
[2021-12-03] MEDS ORDERED: cloNIDine 0.1 MG TAB PO PRN (13:38)
[2021-12-03] MEDS: Meropenem 1 GM in Sodium Chloride 0.9% 100 ML IVPB SCH ×2 (14:32→22:22)
[2021-12-03] MEDS ORDERED: Lorazepam 1 MG TAB PO PRN (20:13)
[2021-12-03] MEDS ORDERED: Lorazepam 0.5 MG TAB PO SCH (21:00)
[2021-12-03] MEDS: Carvedilol 3.125 MG TAB PO SCH (22:33)
[2021-12-03] MEDS: Polyethylene Glycol 3350 17 GM Packet PO SCH (22:33)
[2021-12-03] MEDS: Cholecalciferol 1,000 UNITS (25 MCG) TAB PO SCH (22:33)
[2021-12-03] MEDS: Thiamine HCl 200 MG/2 ML VIAL SLOW IVP SCH (22:38)
[2021-12-04 00:11] LABS: Glucose 83 mg/dL (83-110)
[2021-12-04] MEDS: Sterile Water 10 ML VIAL FS PRN (00:32)
[2021-12-04] MEDS: Lorazepam 1 MG TAB PO SCH (00:42)
[2021-12-04] MEDS ORDERED: Labetalol HCl 100 MG/20 ML VIAL SLOW IVP SCH (02:00)
[2021-12-04] MEDS: Lorazepam 0.5 MG TAB PO SCH ×4 (06:08→21:13)
[2021-12-04] MEDS: Furosemide 40 MG/4 ML VIAL SLOW IVP SCH ×2 (06:37→14:29)
[2021-12-04] MEDS: Meropenem 1 GM in Sodium Chloride 0.9% 100 ML IVPB SCH ×3 (06:38→21:01)
[2021-12-04 07:06] LABS: #Lymphocytes 0.9 thou/uL (1.20-3.40); #Monocytes 1.1 thou/uL (0.11-0.59); #Neutrophils 8.8 thou/uL (1.40-6.50); %Basophils 0.1 % (0.0-1.0); %Eosinophils 0.3 % (0.0-10.0); %Monocytes 10.4 % (0.0-10.0); %Neutrophils 81.2 % (42.0-75.0); Hemoglobin 11.9 g/dL (14.0-18.0); Mean Corpuscular HGB CONC 30.7 g/dL (32.0-36.0); Mean Corpuscular Hemoglobin 29.2 pg (27.0-31.0); Mean Corpuscular Volume 95.1 fL (78.0-98.0); Platelet Count 305 thou/uL (130-400); RBC Distribution Width 13.9 % (11.5-14.5); Red Blood Cell (RBC) Count 4.08 mill/uL (4.70-6.10); White Blood Cell (WBC) Count 10.9 thou/uL (4.8-10.8)
[2021-12-04 07:10] LABS: Glucose 64 mg/dL (83-110)
[2021-12-04 07:17] LABS: ALT (SGPT) Less than 7 U/L (8-55); AST (SGOT) 22 U/L (5-34); Albumin 3.2 g/dL (3.4-4.8); Alkaline Phosphatase 100 U/L (40-110); Anion Gap 21 mmol/L (10-20); BUN (Urea Nitrogen) 17 mg/dL (8.4-25.7); Bilirubin, Total 1.4 mg/dL (0.2-1.2); Calc. Creatinine Clearance 48 mL/min (70-130); Calcium 9.2 mg/dL (7.8-10.44); Carbon Dioxide 22 mmol/L (23-31); Cardiac Risk 1.8 (Less than 4.5); Chloride 98 mmol/L (98-107); Cholesterol 102 mg/dl (< 200 Desired); Globulin 3.6 g/dL (2.4-3.5); Glucose 65 mg/dL (83-110); HDL Cholesterol 56 mg/dL (>60 Neg Risk); LDL Cholesterol, Calculated 35 mg/dL; Magnesium 2.1 mg/dL (1.6-2.6); Protein, Total 6.8 g/dL (5.8-8.1); Sodium 136 mmol/L (136-145); Triglycerides 57 mg/dL (Less than 150)
[2021-12-04 08:15] LABS: Glucose 54 mg/dL (83-110)
[2021-12-04] MEDS: Multivitamins, Adult 10 ML, Folic Acid 1 MG, Thiamine HCl 100 MG in Dextrose 5 %-0.45 %... IV SCH (08:42)
[2021-12-04] MEDS: Enoxaparin Sodium 40 MG/0.4 ML SYRINGE SC SCH (10:10)
[2021-12-04] MEDS: Ascorbic Acid 500 mg Chewable Tablet PO SCH (10:10)
[2021-12-04] MEDS: Aspirin 81 mg Enteric Coated Tablet PO SCH (10:10)
[2021-12-04] MEDS: Cyanocobalamin (Vitamin B-12) 1,000 MCG TAB PO SCH (10:11)
[2021-12-04] MEDS: pyridOXINE 50 MG (B6) TAB PO SCH (10:11)
[2021-12-04] MEDS: Multivit, Therapeutic 1 TAB PO SCH (10:11)
[2021-12-04] MEDS: Folic Acid 1 MG TAB PO SCH (10:11)
[2021-12-04] MEDS: Carvedilol 3.125 MG TAB PO SCH (10:12)
[2021-12-04] MEDS ORDERED: Lorazepam 2 MG/ML VIAL IM PRN (13:09)
[2021-12-04] MEDS ORDERED: Ondansetron ODT 4 MG TAB PO PRN (13:09)
[2021-12-04] MEDS ORDERED: Lorazepam 2 MG/ML VIAL SLOW IVP PRN (13:13)
[2021-12-04] MEDS: K-Phos Neutral 250 MG TAB PO SCH ×4 (14:08→21:13)
[2021-12-04 15:45] LABS: Glucose 77 mg/dL (83-110)
[2021-12-04] MEDS: Carvedilol 6.25 MG TAB PO SCH ×2 (20:59→21:13)
[2021-12-04] MEDS: Thiamine 100 MG TAB PO SCH ×2 (21:00→21:13)
[2021-12-04] MEDS: Polyethylene Glycol 3350 17 GM Packet PO SCH (21:00)
[2021-12-04] MEDS: Cholecalciferol 1,000 UNITS (25 MCG) TAB PO SCH ×2 (21:00→21:13)
[2021-12-04 21:51] LABS: Glucose 98 mg/dL (83-110)
[2021-12-05] MEDS ORDERED: OLANZapine 10 MG VIAL IM SCH ×2 (00:34→22:30)
[2021-12-05] MEDS: Lorazepam 0.5 MG TAB PO SCH (01:31)
[2021-12-05] MEDS: Sterile Water 10 ML VIAL FS PRN ×3 (01:31→22:51)
[2021-12-05] MEDS ORDERED: Ziprasidone 20 MG VIAL IM SCH (04:15)
[2021-12-05] MEDS: Meropenem 1 GM in Sodium Chloride 0.9% 100 ML IVPB SCH ×3 (08:38→22:25)
[2021-12-05] MEDS: Lorazepam 0.5 MG TAB PO PRN (08:39)
[2021-12-05] MEDS: pyridOXINE 50 MG (B6) TAB PO SCH (08:39)
[2021-12-05] MEDS: Ascorbic Acid 500 mg Chewable Tablet PO SCH (08:39)
[2021-12-05] MEDS: K-Phos Neutral 250 MG TAB PO SCH ×2 (08:39→18:12)
[2021-12-05] MEDS: Multivit, Therapeutic 1 TAB PO SCH (08:39)
[2021-12-05] MEDS: Aspirin 81 mg Enteric Coated Tablet PO SCH (08:39)
[2021-12-05] MEDS: Enoxaparin Sodium 40 MG/0.4 ML SYRINGE SC SCH (08:39)
[2021-12-05] MEDS: Cyanocobalamin (Vitamin B-12) 1,000 MCG TAB PO SCH (08:39)
[2021-12-05] MEDS: Carvedilol 6.25 MG TAB PO SCH ×2 (08:39→18:13)
[2021-12-05] MEDS: Folic Acid 1 MG TAB PO SCH (08:39)
[2021-12-05 09:22] LABS: Potassium 5.7 mmol/L (3.5-5.1)
[2021-12-05 09:24] LABS: Anion Gap 18 mmol/L (10-20); BUN (Urea Nitrogen) 19 mg/dL (8.4-25.7); Calc. Creatinine Clearance 45 mL/min (70-130); Calcium 8.5 mg/dL (7.8-10.44); Carbon Dioxide 24 mmol/L (23-31); Chloride 96 mmol/L (98-107); Glucose 77 mg/dL (83-110); Sodium 132 mmol/L (136-145)
[2021-12-05] MEDS: Furosemide 40 MG/4 ML VIAL SLOW IVP SCH ×2 (09:31→16:45)
[2021-12-05] MEDS: Multivitamins, Adult 10 ML, Folic Acid 1 MG in Dextrose 5 %-0.45 % NaCl 1,000 ML IV SCH (10:09)
[2021-12-05 12:16] LABS: Glucose 73 mg/dL (83-110)
[2021-12-05 12:33] LABS: Hemoglobin 13.6 g/dL (14.0-18.0); Mean Corpuscular HGB CONC 31.2 g/dL (32.0-36.0); Mean Corpuscular Volume 92.9 fL (78.0-98.0); Mean Platelet Volume 9.8 fL (7.4-10.4); Platelet Count 318 thou/uL (130-400); RBC Distribution Width 13.9 % (11.5-14.5); Red Blood Cell (RBC) Count 4.67 mill/uL (4.70-6.10); White Blood Cell (WBC) Count 9.7 thou/uL (4.8-10.8)
[2021-12-05] MEDS: Dextrose 50% Abboject 50 ML SYRINGE SLOW IVP PRN (14:11)
[2021-12-05] MEDS ORDERED: Dexamethasone 4 mg/ml Vial IM SCH (14:45)
[2021-12-05 15:44] LABS: Anion Gap 17 mmol/L (10-20); BUN (Urea Nitrogen) 19 mg/dL (8.4-25.7); Calc. Creatinine Clearance 47 mL/min (70-130); Calcium 8.8 mg/dL (7.8-10.44); Carbon Dioxide 25 mmol/L (23-31); Chloride 98 mmol/L (98-107); Glucose 141 mg/dL (83-110); Potassium 3.5 mmol/L (3.5-5.1); Sodium 136 mmol/L (136-145)
[2021-12-05 17:40] LABS: Glucose 101 mg/dL (83-110)
[2021-12-05] MEDS: Dexamethasone 4 mg/ml Vial IM SCH (21:25)
[2021-12-05] MEDS: Thiamine 100 MG TAB PO SCH ×2 (21:25→22:52)
[2021-12-05] MEDS: Cholecalciferol 1,000 UNITS (25 MCG) TAB PO SCH ×2 (21:25)
[2021-12-05] MEDS: Polyethylene Glycol 3350 17 GM Packet PO SCH ×2 (21:25→22:58)
[2021-12-05 21:37] LABS: Glucose 106 mg/dL (83-110)
[2021-12-05] MEDS: Multivitamins, Adult 10 ML, Folic Acid 1 MG, Thiamine HCl 100 MG in Dextrose 5 %-0.45 %... IV SCH (22:25)
[2021-12-06] MEDS ORDERED: Potassium Chloride 20 MEQ TAB PO SCH (08:00)
[2021-12-06] MEDS ORDERED: Potassium Bicarbonate/Cit Ac 20 MEQ TAB PO SCH (08:00)
[2021-12-06] MEDS: Furosemide 40 MG/4 ML VIAL SLOW IVP SCH (08:28)
[2021-12-06 08:51] LABS: #Lymphocytes 0.8 thou/uL (1.20-3.40); #Monocytes 0.5 thou/uL (0.11-0.59); #Neutrophils 7.2 thou/uL (1.40-6.50); %Basophils 0.2 % (0.0-1.0); %Eosinophils 0.1 % (0.0-10.0); %Lymphocytes 9.2 % (21.0-51.0); %Neutrophils 84.5 % (42.0-75.0); Hemoglobin 13.3 g/dL (14.0-18.0); Mean Corpuscular HGB CONC 30.9 g/dL (32.0-36.0); Mean Corpuscular Hemoglobin 28.8 pg (27.0-31.0); Mean Corpuscular Volume 93.1 fL (78.0-98.0); Mean Platelet Volume 9.3 fL (7.4-10.4); Platelet Count 334 thou/uL (130-400); RBC Distribution Width 13.9 % (11.5-14.5); Red Blood Cell (RBC) Count 4.61 mill/uL (4.70-6.10); White Blood Cell (WBC) Count 8.5 thou/uL (4.8-10.8)
[2021-12-06 09:00] LABS: Anion Gap 19 mmol/L (10-20); BUN (Urea Nitrogen) 23 mg/dL (8.4-25.7); Calc. Creatinine Clearance 42 mL/min (70-130); Calcium 9.4 mg/dL (7.8-10.44); Carbon Dioxide 27 mmol/L (23-31); Chloride 97 mmol/L (98-107); Glucose 125 mg/dL (83-110); Potassium 4.4 mmol/L (3.5-5.1); Sodium 139 mmol/L (136-145)
[2021-12-06] MEDS: K-Phos Neutral 250 MG TAB PO SCH ×3 (09:33→17:37)
[2021-12-06] MEDS: Meropenem 1 GM in Sodium Chloride 0.9% 100 ML IVPB SCH (09:33)
[2021-12-06] MEDS: Cyanocobalamin (Vitamin B-12) 1,000 MCG TAB PO SCH (09:34)
[2021-12-06] MEDS: Enoxaparin Sodium 40 MG/0.4 ML SYRINGE SC SCH (09:34)
[2021-12-06] MEDS: Aspirin 81 mg Enteric Coated Tablet PO SCH (09:34)
[2021-12-06] MEDS: Carvedilol 6.25 MG TAB PO SCH (09:35)
[2021-12-06] MEDS: Ascorbic Acid 500 mg Chewable Tablet PO SCH (09:35)
[2021-12-06] MEDS: pyridOXINE 50 MG (B6) TAB PO SCH (09:36)
[2021-12-06] MEDS: Furosemide 40 MG TAB PO SCH ×2 (09:36→13:34)
[2021-12-06] MEDS: Thiamine HCl 200 MG/2 ML VIAL SLOW IVP SCH (09:37)
[2021-12-06] MEDS: Dexamethasone 4 mg/ml Vial IM SCH (09:49)
[2021-12-06] MEDS: Multivitamins, Adult 10 ML, Folic Acid 1 MG in Dextrose 5 %-0.45 % NaCl 1,000 ML IV SCH (13:52)
[2021-12-06 14:21] LABS: Glucose 102 mg/dL (83-110)
[2021-12-06] MEDS ORDERED: Vancomycin 1 GM in Premix Bag 1 BAG IVPB SCH (17:00)
[2021-12-06 17:32] LABS: Glucose 95 mg/dL (83-110)
[2021-12-06 21:48] LABS: Glucose 99 mg/dL (83-110)
[2021-12-07] MEDS: Cholecalciferol 1,000 UNITS (25 MCG) TAB PO SCH ×2 (00:21→21:13)
[2021-12-07] MEDS: Meropenem 1 GM in Sodium Chloride 0.9% 100 ML IVPB SCH ×3 (00:21→14:14)
[2021-12-07] MEDS: Polyethylene Glycol 3350 17 GM Packet PO SCH ×2 (00:21→21:13)
[2021-12-07] MEDS: Vancomycin 1 GM in Premix Bag 1 BAG IVPB SCH (00:34)
[2021-12-07] MEDS: pyridOXINE 50 MG (B6) TAB PO SCH (10:10)
[2021-12-07] MEDS: Thiamine HCl 200 MG/2 ML VIAL SLOW IVP SCH (10:10)
[2021-12-07] MEDS: Enoxaparin Sodium 40 MG/0.4 ML SYRINGE SC SCH (10:11)
[2021-12-07] MEDS: Aspirin 81 mg Enteric Coated Tablet PO SCH (10:11)
[2021-12-07] MEDS: K-Phos Neutral 250 MG TAB PO SCH ×3 (10:11→17:24)
[2021-12-07] MEDS: Cyanocobalamin (Vitamin B-12) 1,000 MCG TAB PO SCH (10:11)
[2021-12-07] MEDS: Ascorbic Acid 500 mg Chewable Tablet PO SCH (10:11)
[2021-12-07] MEDS: Multivitamins, Adult 10 ML, Folic Acid 1 MG in Dextrose 5 %-0.45 % NaCl 1,000 ML IV SCH ×2 (10:12→17:23)
[2021-12-07] MEDS: Dextrose 50% Abboject 50 ML SYRINGE SLOW IVP PRN (11:09)
[2021-12-07 14:18] LABS: Anion Gap 19 mmol/L (10-20); BUN (Urea Nitrogen) 29 mg/dL (8.4-25.7); Calc. Creatinine Clearance 35 mL/min (70-130); Carbon Dioxide 24 mmol/L (23-31); Chloride 100 mmol/L (98-107); Glucose 81 mg/dL (83-110); Potassium 4.4 mmol/L (3.5-5.1); Sodium 139 mmol/L (136-145)
[2021-12-07 17:23] LABS: Glucose 81 mg/dL (83-110)
[2021-12-08] MEDS: Vancomycin 1 GM in Premix Bag 1 BAG IVPB SCH (00:39)
[2021-12-08] MEDS: Dextrose 50% Abboject 50 ML SYRINGE SLOW IVP PRN (00:39)
[2021-12-08] MEDS: Meropenem 1 GM in Sodium Chloride 0.9% 100 ML IVPB SCH (03:40)
[2021-12-08] MEDS: Ascorbic Acid 500 mg Chewable Tablet PO SCH (09:21)
[2021-12-08] MEDS: Enoxaparin Sodium 40 MG/0.4 ML SYRINGE SC SCH (09:21)
[2021-12-08] MEDS: pyridOXINE 50 MG (B6) TAB PO SCH (09:22)
[2021-12-08] MEDS: Aspirin 81 mg Enteric Coated Tablet PO SCH (09:22)
[2021-12-08] MEDS: K-Phos Neutral 250 MG TAB PO SCH ×3 (09:22→16:41)
[2021-12-08] MEDS: Cyanocobalamin (Vitamin B-12) 1,000 MCG TAB PO SCH (09:23)
[2021-12-08] MEDS: Thiamine HCl 200 MG/2 ML VIAL SLOW IVP SCH (09:26)
[2021-12-08] MEDS ORDERED: Carvedilol 3.125 MG TAB PO SCH (10:45)
[2021-12-08] MEDS: Lorazepam 0.5 MG TAB PO PRN ×2 (15:03→15:06)
[2021-12-08] MEDS: Carvedilol 3.125 MG TAB PO SCH (16:38)
[2021-12-08] MEDS: Multivitamins, Adult 10 ML, Folic Acid 1 MG in Dextrose 5 %-0.45 % NaCl 1,000 ML IV SCH ×2 (18:33→22:30)
[2021-12-08 18:42] LABS: SARS-CoV-2 PCR by NAA Not Detected (NotDetected)
[2021-12-08 18:47] LABS: Glucose 77 mg/dL (83-110)
[2021-12-08] MEDS: Polyethylene Glycol 3350 17 GM Packet PO SCH (21:29)
[2021-12-08] MEDS: Cholecalciferol 1,000 UNITS (25 MCG) TAB PO SCH (21:29)
[2021-12-09 01:17] LABS: Vancomycin, Trough 13.5 ug/mL
[2021-12-09 01:19] LABS: Anion Gap 16 mmol/L (10-20); BUN (Urea Nitrogen) 27 mg/dL (8.4-25.7); Calc. Creatinine Clearance 48 mL/min (70-130); Calcium 8.7 mg/dL (7.8-10.44); Carbon Dioxide 26 mmol/L (23-31); Chloride 101 mmol/L (98-107); Glucose 78 mg/dL (83-110); Sodium 139 mmol/L (136-145)
[2021-12-09] MEDS: Vancomycin 1 GM in Premix Bag 1 BAG IVPB SCH (01:22)
[2021-12-09 04:49] LABS: Hemoglobin 9.2 g/dL (14.0-18.0); Mean Corpuscular HGB CONC 31.2 g/dL (32.0-36.0); Mean Corpuscular Hemoglobin 29.6 pg (27.0-31.0); Mean Corpuscular Volume 94.9 fL (78.0-98.0); Platelet Count 290 thou/uL (130-400); RBC Distribution Width 13.2 % (11.5-14.5); White Blood Cell (WBC) Count 6.9 thou/uL (4.8-10.8)
[2021-12-09 05:04] LABS: Anion Gap 14 mmol/L (10-20); BUN (Urea Nitrogen) 25 mg/dL (8.4-25.7); Calc. Creatinine Clearance 48 mL/min (70-130); Calcium 8.6 mg/dL (7.8-10.44); Carbon Dioxide 27 mmol/L (23-31); Chloride 101 mmol/L (98-107); Glucose 80 mg/dL (83-110); Potassium 3.9 mmol/L (3.5-5.1); Sodium 138 mmol/L (136-145)
[2021-12-09] MEDS: Carvedilol 3.125 MG TAB PO SCH ×2 (09:10→17:02)
[2021-12-09] MEDS: Cyanocobalamin (Vitamin B-12) 1,000 MCG TAB PO SCH (09:10)
[2021-12-09] MEDS: Ascorbic Acid 500 mg Chewable Tablet PO SCH (09:11)
[2021-12-09] MEDS: K-Phos Neutral 250 MG TAB PO SCH ×3 (09:11→17:02)
[2021-12-09] MEDS: Aspirin 81 mg Enteric Coated Tablet PO SCH (09:11)
[2021-12-09] MEDS: pyridOXINE 50 MG (B6) TAB PO SCH (09:11)
[2021-12-09] MEDS: Thiamine HCl 200 MG/2 ML VIAL SLOW IVP SCH (09:12)
[2021-12-09] MEDS: Enoxaparin Sodium 40 MG/0.4 ML SYRINGE SC SCH (09:12)
[2021-12-09 18:17] LABS: Glucose 74 mg/dL (83-110)
[2021-12-09] MEDS: Cholecalciferol 1,000 UNITS (25 MCG) TAB PO SCH (21:44)
[2021-12-09] MEDS: Polyethylene Glycol 3350 17 GM Packet PO SCH (21:44)
[2021-12-09] MEDS: Multivitamins, Adult 10 ML, Folic Acid 1 MG in Dextrose 5 %-0.45 % NaCl 1,000 ML IV SCH (21:49)
[2021-12-09] MEDS: Lorazepam 0.5 MG TAB PO PRN (21:52)
[2021-12-10] MEDS: Vancomycin 1 GM in Premix Bag 1 BAG IVPB SCH (00:41)
[2021-12-10 08:14] VITALS: BMI 17.3
[2021-12-10] MEDS: Ascorbic Acid 500 mg Chewable Tablet PO SCH (09:42)
[2021-12-10] MEDS: Carvedilol 3.125 MG TAB PO SCH ×2 (09:43→17:24)
[2021-12-10] MEDS: pyridOXINE 50 MG (B6) TAB PO SCH (09:43)
[2021-12-10] MEDS: Aspirin 81 mg Enteric Coated Tablet PO SCH (09:43)
[2021-12-10] MEDS: Cyanocobalamin (Vitamin B-12) 1,000 MCG TAB PO SCH (09:44)
[2021-12-10] MEDS: K-Phos Neutral 250 MG TAB PO SCH ×4 (09:44→17:22)
[2021-12-10] MEDS: Lorazepam 0.5 MG TAB PO PRN (09:45)
[2021-12-10] MEDS: Thiamine HCl 200 MG/2 ML VIAL SLOW IVP SCH (09:45)
[2021-12-10] MEDS ORDERED: Sodium Chloride 0.9% 500 ML IV SCH (17:45)
[2021-12-10] MEDS ORDERED: Furosemide 40 MG/4 ML VIAL SLOW IVP SCH (21:30)
[2021-12-10] MEDS ORDERED: Sterile Water 10 ML VIAL FS PRN (22:15)
[2021-12-10] MEDS ORDERED: Ziprasidone 20 MG VIAL IM SCH (22:15)
[2021-12-10] MEDS: Cholecalciferol 1,000 UNITS (25 MCG) TAB PO SCH (22:32)
[2021-12-10] MEDS: Polyethylene Glycol 3350 17 GM Packet PO SCH (22:33)
[2021-12-11 00:33] LABS: Hemoglobin 8.3 g/dL (14.0-18.0); Mean Corpuscular Hemoglobin 29.6 pg (27.0-31.0); Mean Corpuscular Volume 95.3 fL (78.0-98.0); Mean Platelet Volume 8.7 fL (7.4-10.4); Platelet Count 291 thou/uL (130-400); RBC Distribution Width 13.3 % (11.5-14.5); Red Blood Cell (RBC) Count 2.81 mill/uL (4.70-6.10)
[2021-12-11 01:04] LABS: Anion Gap 14 mmol/L (10-20); BUN (Urea Nitrogen) 22 mg/dL (8.4-25.7); Calc. Creatinine Clearance 54 mL/min (70-130); Calcium 8.4 mg/dL (7.8-10.44); Carbon Dioxide 26 mmol/L (23-31); Chloride 103 mmol/L (98-107); Glucose 75 mg/dL (83-110); Sodium 139 mmol/L (136-145)
[2021-12-11] MEDS: Vancomycin 1 GM in Premix Bag 1 BAG IVPB SCH (03:32)
[2021-12-11 05:27] LABS: Hemoglobin 8.5 g/dL (14.0-18.0); Mean Corpuscular HGB CONC 30.2 g/dL (32.0-36.0); Mean Corpuscular Hemoglobin 28.6 pg (27.0-31.0); Mean Corpuscular Volume 94.6 fL (78.0-98.0); Mean Platelet Volume 8.8 fL (7.4-10.4); Platelet Count 317 thou/uL (130-400); RBC Distribution Width 13.4 % (11.5-14.5); Red Blood Cell (RBC) Count 2.99 mill/uL (4.70-6.10)
[2021-12-11 05:48] LABS: Anion Gap 15 mmol/L (10-20); BUN (Urea Nitrogen) 22 mg/dL (8.4-25.7); Calc. Creatinine Clearance 50 mL/min (70-130); Calcium 8.7 mg/dL (7.8-10.44); Carbon Dioxide 25 mmol/L (23-31); Chloride 104 mmol/L (98-107); Glucose 84 mg/dL (83-110); Potassium 3.8 mmol/L (3.5-5.1); Sodium 140 mmol/L (136-145)
[2021-12-11] MEDS ORDERED: Sterile Water 10 ML VIAL FS PRN (08:00)
[2021-12-11] MEDS: Aspirin 81 mg Enteric Coated Tablet PO SCH (09:10)
[2021-12-11] MEDS: K-Phos Neutral 250 MG TAB PO SCH ×3 (09:10→16:18)
[2021-12-11] MEDS: Cyanocobalamin (Vitamin B-12) 1,000 MCG TAB PO SCH (09:10)
[2021-12-11] MEDS: Carvedilol 3.125 MG TAB PO SCH ×2 (09:10→16:16)
[2021-12-11] MEDS: Ascorbic Acid 500 mg Chewable Tablet PO SCH (09:10)
[2021-12-11] MEDS: pyridOXINE 50 MG (B6) TAB PO SCH (09:10)
[2021-12-11] MEDS: Cefepime 1 GM in Sodium Chloride 0.9% 100 ML IVPB SCH (09:11)
[2021-12-11] MEDS: Thiamine HCl 200 MG/2 ML VIAL SLOW IVP SCH (09:12)
[2021-12-11] MEDS: OLANZapine 10 MG VIAL IM PRN ×2 (09:15→23:29)
[2021-12-11] MEDS: Lorazepam 0.5 MG TAB PO PRN ×2 (10:14→22:54)
[2021-12-11] MEDS: Dextrose 50% Abboject 50 ML SYRINGE SLOW IVP PRN (16:35)
[2021-12-11] MEDS: Cholecalciferol 1,000 UNITS (25 MCG) TAB PO SCH (21:53)
[2021-12-11] MEDS: guaiFENesin/DM ER PO SCH (21:53)
[2021-12-11] MEDS: Polyethylene Glycol 3350 17 GM Packet PO SCH (21:53)
[2021-12-11 22:00] LABS: Band 13 % (5-11); Hemoglobin 9.4 g/dL (14.0-18.0); Lymphocytes 7 % (21-51); MDiff Complete? YES; Mean Corpuscular Hemoglobin 29.4 pg (27.0-31.0); Mean Corpuscular Volume 94.7 fL (78.0-98.0); Mean Platelet Volume 9.6 fL (7.4-10.4); Monocytes 5 % (0-10); Neutrophil 75 % (42-75); Platelet Count 340 thou/uL (130-400); Platelet Morphology Comment Appears Adequate; RBC Distribution Width 13.8 % (11.5-14.5); Red Blood Cell (RBC) Count 3.19 mill/uL (4.70-6.10); White Blood Cell (WBC) Count 25.4 thou/uL (4.8-10.8)
[2021-12-12] MEDS: Vancomycin 1 GM in Premix Bag 1 BAG IVPB SCH (01:15)
[2021-12-12 04:41] LABS: Anion Gap 20 mmol/L (10-20); BUN (Urea Nitrogen) 27 mg/dL (8.4-25.7); Calc. Creatinine Clearance 42 mL/min (70-130); Calcium 9.1 mg/dL (7.8-10.44); Carbon Dioxide 20 mmol/L (23-31); Chloride 107 mmol/L (98-107); Glucose 76 mg/dL (83-110); Potassium 4.7 mmol/L (3.5-5.1); Sodium 142 mmol/L (136-145)
[2021-12-12] MEDS: Lorazepam 0.5 MG TAB PO PRN (05:32)
[2021-12-12] MEDS ORDERED: Thiamine 100 MG TAB PO SCH (09:00)
[2021-12-12] MEDS: K-Phos Neutral 250 MG TAB PO SCH ×2 (09:47→12:20)
[2021-12-12] MEDS: Carvedilol 3.125 MG TAB PO SCH (09:47)
[2021-12-12] MEDS: Ascorbic Acid 500 mg Chewable Tablet PO SCH (09:47)
[2021-12-12] MEDS: Aspirin 81 mg Enteric Coated Tablet PO SCH (09:48)
[2021-12-12] MEDS: Cyanocobalamin (Vitamin B-12) 1,000 MCG TAB PO SCH (09:48)
[2021-12-12] MEDS: guaiFENesin/DM ER PO SCH (09:48)
[2021-12-12] MEDS: pyridOXINE 50 MG (B6) TAB PO SCH (09:48)
[2021-12-12] MEDS: Cefepime 1 GM in Sodium Chloride 0.9% 100 ML IVPB SCH (10:48)
[2021-12-12 11:02] LABS: Glucose 130 mg/dL (83-110)
[2021-12-12 12:16] VITALS: BP 88/60
[2021-12-12 12:18] LABS: #Lymphocytes 0.9 thou/uL (1.20-3.40); #Monocytes 0.9 thou/uL (0.11-0.59); #Neutrophils 17.6 thou/uL (1.40-6.50); %Eosinophils 0.1 % (0.0-10.0); %Lymphocytes 4.8 % (21.0-51.0); %Monocytes 4.8 % (0.0-10.0); %Neutrophils 90.3 % (42.0-75.0); Band 19 % (5-11); Hypochromia SLIGHT = 6-15 cells (100X) (0-5/hpf); Lymphocytes 3 % (21-51); MDiff Complete? YES; Mean Corpuscular HGB CONC 29.7 g/dL (32.0-36.0); Mean Corpuscular Hemoglobin 28.3 pg (27.0-31.0); Mean Corpuscular Volume 95.5 fL (78.0-98.0); Mean Platelet Volume 8.8 fL (7.4-10.4); Monocytes 1 % (0-10); Neutrophil 76 % (42-75); Ovalocytes SLIGHT = 2-5 cells (100X) (0-1/hpf); Platelet Count 300 thou/uL (130-400); Platelet Morphology Comment Appears Adequate; RBC Distribution Width 13.5 % (11.5-14.5); Red Blood Cell (RBC) Count 2.82 mill/uL (4.70-6.10); Target Cells SLIGHT = 2-5 cells (100X) (0-1/hpf); White Blood Cell (WBC) Count 19.4 thou/uL (4.8-10.8)
[2021-12-12 15:37] VITALS: TEMP 96.2
== END 2021-12-12 15:46 | disposition hospice, inpatient (51) | DRG 871 ==
LOC: ERS 10:48 → ERHOLD 16:23 → NEURO 21:52 → 2NO 12-06 20:18
PROVIDERS: ADMIT Family Medicine; ATTEND Internal Medicine
DX: A41.9 Sepsis, unspecified organism (principal); J69.0 Pneumonitis due to inhalation of food and vomit; I21.A1 Myocardial infarction type 2; I50.21 Acute systolic (congestive) heart failure; E43 Unspecified severe protein-calorie malnutrition; G92.8 Other toxic encephalopathy; R64 Cachexia; E87.1 Hypo-osmolality and hyponatremia; Z68.1 Body mass index [BMI] 19.9 or less, adult; F10.231 Alcohol dependence with withdrawal delirium; F05 Delirium due to known physiological condition; I42.0 Dilated cardiomyopathy; I11.0 Hypertensive heart disease with heart failure; Z20.822 Contact with and (suspected) exposure to COVID-19; Z66 Do not resuscitate; Z78.1 Physical restraint status; Z51.5 Encounter for palliative care; G30.0 Alzheimer's disease with early onset; D64.9 Anemia, unspecified; F02.80 Dementia in other diseases classified elsewhere, unspecified severity, without behavioral disturbance, psychotic disturbance, mood disturbance, and anxiety; F17.210 Nicotine dependence, cigarettes, uncomplicated; E16.2 Hypoglycemia, unspecified; R91.8 Other nonspecific abnormal finding of lung field; E83.42 Hypomagnesemia; R31.9 Hematuria, unspecified; R09.02 Hypoxemia; Z79.899 Other long term (current) drug therapy; Z85.89 Personal history of malignant neoplasm of other organs and systems; Z98.890 Other specified postprocedural states
CPT/HCPCS: 36415; 36416; 70450; 71045; 71260; 74177; 80048; 80053; 80061; 80202; 82010; 82533; 82553; 83036; 83525; 83605; 83735; 83880; 84100; 84443; 84484; 84681; 85025; 85027; 85610; 85730; 87040; 93005; 93306; 96372; 96374; 96375; J0692; J1100; J1610; J1650; J1940; J2185; J2358; J3370; J3411; J3475; J3486; J3490; J7030; J7042; J7050; P9045; Q0162; U0002; U0003; U0005

== ENCOUNTER 2021-12-12 16:28 | Inpatient (IN) | payer OTHER ==
[2021-12-12 16:53] VITALS: BMI 17.5
[2021-12-12] MEDS ORDERED: Morphine 4 MG/ML VIAL SLOW IVP PRN (19:01)
[2021-12-12] MEDS ORDERED: Lorazepam 2 MG/ML VIAL SLOW IVP PRN ×2 (19:15)
[2021-12-12] MEDS ORDERED: Haloperidol Lactate 5 MG/ML VIAL SLOW IVP PRN (19:15)
[2021-12-12] MEDS ORDERED: Loperamide HCl 2 MG CAP PO PRN (19:15)
[2021-12-12] MEDS ORDERED: Hyoscyamine Sulfate SL 0.125 mg Tablet SL PRN (19:15)
[2021-12-12] MEDS ORDERED: Ondansetron PF 4 MG/2 ML Vial IVP PRN (19:15)
[2021-12-12] MEDS ORDERED: Scopolamine 1.5 mg/72 hour Patch TOP PRN ×2 (19:15)
[2021-12-12] MEDS ORDERED: Zolpidem Tartrate 5 MG TAB PO PRN (19:15)
[2021-12-12] MEDS ORDERED: Milk Of Magnesia 30 ML UDCUP PO PRN (19:15)
[2021-12-12] MEDS ORDERED: Senokot 8.6 MG TAB PO PRN (19:15)
[2021-12-12] MEDS ORDERED: Acetaminophen 650 MG Suppository PR PRN (19:15)
[2021-12-12] MEDS: Lorazepam 2 MG/ML VIAL SLOW IVP SCH (21:00)
[2021-12-13] MEDS: Lorazepam 2 MG/ML VIAL SLOW IVP SCH (08:01)
[2021-12-13] MEDS: Lorazepam 1 MG TAB PO PRN (14:46)
[2021-12-13] MEDS: Lorazepam 1 MG TAB PO SCH (17:56)
[2021-12-14] MEDS: Lorazepam 1 MG TAB PO SCH ×4 (01:10→13:46)
[2021-12-14] MEDS: Lorazepam 1 MG TAB PO PRN (07:06)
[2021-12-14] MEDS ORDERED: Morphine 20 MG/ML Oral Solution (ROXANOL) SL PRN (09:35)
[2021-12-14] MEDS ORDERED: Ondansetron ODT 4 MG TAB PO PRN (09:36)
[2021-12-14] MEDS: Diazepam 5 MG TAB PO SCH (20:57)
[2021-12-15] MEDS: Diazepam 5 MG TAB PO SCH ×2 (07:59→23:59)
[2021-12-15] MEDS: Divalproex Sodium DR 500 MG TAB PO SCH ×2 (07:59→23:59)
[2021-12-15] MEDS: Diazepam 5 MG TAB PO PRN (12:47)
[2021-12-15] MEDS ORDERED: Haloperidol 5 MG TAB PO PRN (16:00)
[2021-12-16] MEDS: Divalproex Sodium DR 500 MG TAB PO SCH ×3 (10:15→20:34)
[2021-12-16] MEDS: Diazepam 5 MG TAB PO SCH ×3 (10:15→20:34)
[2021-12-17] MEDS: Divalproex Sodium DR 500 MG TAB PO SCH ×2 (09:59→22:43)
[2021-12-17] MEDS: Diazepam 5 MG TAB PO SCH ×2 (09:59→22:43)
[2021-12-18] MEDS: Divalproex Sodium DR 500 MG TAB PO SCH ×2 (10:44→21:02)
[2021-12-18] MEDS: Diazepam 5 MG TAB PO SCH ×2 (10:44→20:54)
[2021-12-18] MEDS ORDERED: Scopolamine 1.5 mg/72 hour Patch TOP SCH ×2 (16:00→22:00)
[2021-12-18] MEDS: Senokot 8.6 MG TAB PO SCH (21:02)
[2021-12-18] MEDS ORDERED: Haloperidol 5 MG TAB FS PRN (22:37)
[2021-12-19] MEDS ORDERED: Senokot 8.6 MG TAB PO SCH (09:00)
[2021-12-19] MEDS: Senokot 8.6 MG TAB PO SCH ×2 (10:42→21:11)
[2021-12-19] MEDS: Diazepam 5 MG TAB PO SCH ×2 (10:42→21:14)
[2021-12-19] MEDS: Divalproex Sodium DR 500 MG TAB PO SCH (10:47)
[2021-12-19] MEDS: Diazepam 5 MG TAB PO PRN (15:47)
[2021-12-19] MEDS: Divalproex Sodium 125 mg Sprinkle Capsule PO SCH (21:11)
[2021-12-20 07:51] VITALS: BP 160/90; TEMP 97.8
[2021-12-20] MEDS: Diazepam 5 MG TAB PO SCH (08:14)
[2021-12-20] MEDS: Divalproex Sodium 125 mg Sprinkle Capsule PO SCH (08:14)
[2021-12-20] MEDS: Senokot 8.6 MG TAB PO SCH (08:15)
== END 2021-12-20 10:17 | DRG 951 ==
LOC: 2NO 16:28 → SURG A 12-14 20:18
PROVIDERS: ADMIT Family Medicine; ATTEND Family Medicine
DX: Z51.5 Encounter for palliative care (principal); C34.90 Malignant neoplasm of unspecified part of unspecified bronchus or lung; I50.9 Heart failure, unspecified; G30.9 Alzheimer's disease, unspecified; F02.80 Dementia in other diseases classified elsewhere, unspecified severity, without behavioral disturbance, psychotic disturbance, mood disturbance, and anxiety; F10.20 Alcohol dependence, uncomplicated; L89.152 Pressure ulcer of sacral region, stage 2; Z78.1 Physical restraint status